=== PATIENT | female | born 1990 | race Caucasian/White ===

== ENCOUNTER 2021-05-10 05:02 | Emergency (ER) | payer OTHER ==
[2021-05-10 05:12] VITALS: TEMP 97.7
[2021-05-10 05:26] LABS: GRAN # 5.6 K/mm3 (1.4-6.5); GRAN % 72.8 % (42.2-75.2); LYMPH # 1.7 K/mm3 (1.2-3.4); LYMPH % 22.1 % (20.0-51.0); MEAN CELL VOLUME 88 fl (80.0-100.0); MEAN CORPUSCULAR HGB CONC 33 g/dl (33.0-37.0); MEAN PLATELET VOLUME 9.6 fl (7.4-10.4); MONO # 0.3 K/mm3 (0.1-0.6); MONO % 4.3 % (1.7-9.3); PLATELET COUNT 362 K/mm3 (130-400); RED BLOOD COUNT 3.02 M/mm3 (4.10-5.30); REDCELL DISTRIBUTION WIDTH-CV 13.1 % (11.5-14.5)
[2021-05-10 05:27] LABS: HEMATOCRIT 26.6 % (37.0-47.0); HEMOGLOBIN 8.7 g/dl (12.5-16.0); MEAN CORPUSCULAR HEMOGLOBIN 29 pg (27.0-31.0)
[2021-05-10 05:45] LABS: ALBUMIN 3.5 gm/dL (3.5-5.0); BILIRUBIN,TOTAL 0.5 mg/dL (0.2-1.2); CALCIUM 9.2 mg/dL (8.4-10.2); CREATININE, serum 0.63 mg/dL (0.57-1.11); POTASSIUM 3.9 mmol/L (3.5-4.5); TOTAL PROTEIN 6.8 gm/dL (6.2-8.1)
[2021-05-10] MEDS ORDERED: ROXICODONE 55 MG/TAB PO (06:32)
[2021-05-10 06:41] VITALS: BP 109/79; PULSE 69
== END 2021-05-10 06:41 | disposition home or self-care (01) ==
LOC: COL.ER 05:02
PROVIDERS: Student in an Organized Health Care Education/Training Program
DX: O46.90 Antepartum hemorrhage, unspecified, unspecified trimester (principal); Z3A.00 Weeks of gestation of pregnancy not specified
CPT/HCPCS: J2270; J2405; J7030

== ENCOUNTER 2021-05-10 13:00 | Outpatient (RCR) | payer OTHER ==
[2021-05-10] VITALS (9 sets, daily range): BP systolic 95–116; BP diastolic 52–57; PULSE 60–72; TEMP 97.5–98.9
[~2021-05-10] VITALS: Ht 162.6 cm; Wt 55.9 kg
[~2021-05-10 13:00] MED LIST: ROXICODONE 55 MG/TAB PO
== END 2021-05-10 17:52 | disposition home or self-care (01) ==
LOC: EUO 13:00
DX: C58 Malignant neoplasm of placenta (principal); D64.9 Anemia, unspecified
CPT/HCPCS: J7050; P9016